=== PATIENT | female | born 1970 | race Caucasian/White ===

== ENCOUNTER → 2023-11-09 | Outpatient (CLI) | payer MEDICAID | LOC: ORTHO 10:19 | PROVIDERS: ATTEND Orthopaedic Surgery | DX: M17.0 Bilateral primary osteoarthritis of knee (principal); Z96.652 Presence of left artificial knee joint ==

== ENCOUNTER 2023-12-29 08:34 | Emergency (ER) | payer MEDICAID ==
[~2023-12-29] VITALS: Ht 152.4 cm; Wt 126.1 kg
[2023-12-29] MEDS ORDERED: Acetaminophen/Oxycodone 5 MG/325 MG TABLET PO ONE (10:40)
[2023-12-29] MEDS ORDERED: MELOXICAM15 MG PO (12:13)
== END 2023-12-29 12:18 | disposition home or self-care (01) ==
LOC: ED 08:34
DX: M25.561 Pain in right knee (principal); Z96.652 Presence of left artificial knee joint

== ENCOUNTER 2024-02-11 22:03 | Inpatient (IN) | payer OTHER, MEDICAID ==
[~2024-02-11] VITALS: Ht 149.9 cm; Wt 136.5 kg
[~2024-02-11 22:03] MED LIST: MELOXICAM15 MG PO
[2024-02-11 22:22] VITALS: BP 148/88
[2024-02-11 23:24] LABS: BUN 8 mg/dl (9-23); CHLORIDE 108 mmol/L (98-107); POTASSIUM 4.1 mmol/L (3.4-5.1)
[2024-02-11] MEDS ORDERED: FUROSEMIDE20 M1 PO (23:41)
[2024-02-11] MEDS ORDERED: CETIRIZINE HYDR10 MG PO (23:41)
[2024-02-11] MEDS ORDERED: JARDIANCE10 MG PO (23:41)
[2024-02-11] MEDS ORDERED: ATORVASTATIN CA20 M1 PO (23:42)
[2024-02-11] MEDS ORDERED: MELOXICAM15 MG PO (23:42)
[2024-02-11] MEDS ORDERED: PANTOPRAZOLE SO20 MG PO (23:42)
[2024-02-11] MEDS ORDERED: MONTELUKAST SOD10 MG PO (23:44)
[2024-02-11] MEDS ORDERED: DULERA 200 MCG-13 GM INH (23:44)
[2024-02-11 23:45] LABS: BASO % 0.4 % (0.0-1.0); EOS # 0.4 10*3/uL (0.0-0.4); EOS % 5.7 % (1.0-4.0); HEMATOCRIT 37.2 % (37.0-47.0); LYMPH # 2.9 10*3/uL (1.3-4.4); LYMPH % 40.2 % (27.0-41.0); MEAN CELL VOLUME 93.7 fl (81.0-99.0); MEAN CORPUSCULAR HGB CONC 30.9 g/dl (33.0-37.0); MEAN PLATELET VOLUME 9.9 fl (9.6-12.3); MONO # 0.5 10*3/uL (0.1-1.0); MONO % 7.6 % (3.0-9.0); NEUT # 3.3 10*3/uL (2.3-7.9); PLATELET COUNT AUTOMATED 276 10*3/uL (130-400); RED BLOOD COUNT 3.97 10*6/uL (4.10-5.10); RED CELL DISTRI WIDTH 14.2 % (0-14.5); WHITE BLOOD COUNT 7.1 10*3/uL (4.8-10.8)
[2024-02-11] MEDS ORDERED: ROPINIROLE HYDRO3 MG PO (23:45)
[2024-02-12] VITALS (8 sets, daily range): BP systolic 102–135; BP diastolic 57–78
[2024-02-12] MEDS ORDERED: Vancomycin Hydrochloride 250 ML IV ONE (00:45)
[2024-02-12] MEDS ORDERED: Piperacillin Sodium/Tazobact 50 ML IV ONE (00:45)
[2024-02-12] MEDS ORDERED: FUROSEMIDE 40 MG/4 ML VIAL IV ONE (00:45)
[2024-02-12] MEDS ORDERED: ALBUTEROL SULFATE HF INH (02:02)
[2024-02-12] MEDS ORDERED: Magnesium Hydroxide 30 ML UDC PO PRN (02:40)
[2024-02-12] MEDS ORDERED: Ondansetron Hydrochloride 4 MG/2 ML VIAL IV PRN (02:40)
[2024-02-12] MEDS ORDERED: ACETAMINOPHEN 325 MG TAB PO PRN (02:40)
[2024-02-12] MEDS ORDERED: Vancomycin Hydrochloride 1,000 MG in SODIUM CHLORIDE 0.9% 250 ML IV SCH (02:50)
[2024-02-12] MEDS ORDERED: Albuterol Sulfate 2.5 MG/3 ML VIAL NEB PRN (03:20)
[2024-02-12] MEDS ORDERED: Piperacillin Sodium/Tazobact 50 ML IV SCH (06:00)
[2024-02-12] MEDS ORDERED: FUROSEMIDE 40 MG/4 ML VIAL IV SCH (06:00)
[2024-02-12] MEDS ORDERED: Pantoprazole Sodium 20 MG TAB PO SCH (06:00)
[2024-02-12 06:52] LABS: BASO % 0.7 % (0.0-1.0); EOS # 0.4 10*3/uL (0.0-0.4); EOS % 6.5 % (1.0-4.0); HEMATOCRIT 40.7 % (37.0-47.0); LYMPH # 2.1 10*3/uL (1.3-4.4); LYMPH % 36.1 % (27.0-41.0); MEAN CELL VOLUME 93.8 fl (81.0-99.0); MEAN CORPUSCULAR HGB 28.6 pg (27.0-31.0); MEAN CORPUSCULAR HGB CONC 30.5 g/dl (33.0-37.0); MEAN PLATELET VOLUME 10.2 fl (9.6-12.3); MONO # 0.4 10*3/uL (0.1-1.0); MONO % 7.5 % (3.0-9.0); NEUT # 2.9 10*3/uL (2.3-7.9); NEUT % 48.9 % (47.0-73.0); PLATELET COUNT AUTOMATED 307 10*3/uL (130-400); RED BLOOD COUNT 4.34 10*6/uL (4.10-5.10); RED CELL DISTRI WIDTH 14.2 % (0-14.5); WHITE BLOOD COUNT 5.8 10*3/uL (4.8-10.8)
[2024-02-12 06:58] LABS: ALKALINE PHOSPHATASE 85 U/L (46-116); BUN 8 mg/dl (9-23); CHLORIDE 103 mmol/L (98-107); POTASSIUM 3.8 mmol/L (3.4-5.1); SGPT/ALT 14 U/L (5-49)
[2024-02-12] MEDS ORDERED: Enoxaparin Sodium 40 MG/0.4 ML SYR SC SCH (10:00)
[2024-02-12] MEDS ORDERED: BUDESONIDE 0.5 MG AMP NEB SCH (10:00)
[2024-02-12] MEDS ORDERED: Albuterol Sulfate 2.5 MG/3 ML VIAL NEB SCH (10:00)
[2024-02-12] MEDS ORDERED: ROPINIROLE HYDROCHLORIDE 3 MG PO SCH (10:00)
[2024-02-12] MEDS ORDERED: VANCOMYCIN/WATER FOR INJ (PEG) 250 ML IV SCH (10:00)
[2024-02-12] MEDS ORDERED: Cetirizine Hydrochloride 10 MG TAB PO SCH (10:00)
[2024-02-12] MEDS ORDERED: ATORVASTATIN CALCIUM 20 MG TAB PO SCH (18:00)
[2024-02-12] MEDS ORDERED: Montelukast Sodium 10 MG TAB PO SCH (22:00)
[2024-02-13 00:32] VITALS: BP 139/73
[2024-02-13 03:47] VITALS: BP 127/70
[2024-02-13 06:50] LABS: BASO % 0.5 % (0.0-1.0); EOS # 0.4 10*3/uL (0.0-0.4); EOS % 5.5 % (1.0-4.0); HEMATOCRIT 43.1 % (37.0-47.0); LYMPH # 2.3 10*3/uL (1.3-4.4); LYMPH % 35.8 % (27.0-41.0); MEAN CELL VOLUME 93.5 fl (81.0-99.0); MEAN CORPUSCULAR HGB 28.2 pg (27.0-31.0); MEAN CORPUSCULAR HGB CONC 30.2 g/dl (33.0-37.0); MONO # 0.3 10*3/uL (0.1-1.0); MONO % 5.2 % (3.0-9.0); NEUT # 3.4 10*3/uL (2.3-7.9); NEUT % 52.8 % (47.0-73.0); PLATELET COUNT AUTOMATED 333 10*3/uL (130-400); RED BLOOD COUNT 4.61 10*6/uL (4.10-5.10); RED CELL DISTRI WIDTH 14.3 % (0-14.5); WHITE BLOOD COUNT 6.4 10*3/uL (4.8-10.8)
[2024-02-13 07:10] LABS: BUN 9 mg/dl (9-23); CHLORIDE 101 mmol/L (98-107); POTASSIUM 4.1 mmol/L (3.4-5.1)
[2024-02-13 08:01] VITALS: BP 127/87
[2024-02-13 12:00] VITALS: BP 125/89
[2024-02-13 14:34] VITALS: BP 125/61
[2024-02-13 20:00] VITALS: BP 144/86
[2024-02-14] VITALS: BP 137/68
[2024-02-14 08:00] VITALS: BP 141/65
[2024-02-14] MEDS ORDERED: LASIX40 MG PO (10:46)
[2024-02-14] MEDS ORDERED: K-TAB20 MEQ PO (10:46)
[2024-02-14] MEDS ORDERED: VIBRAMYCIN100 MG PO (10:47)
== END 2024-02-14 11:12 | disposition home or self-care (01) | DRG 177 ==
LOC: ED 22:03 → 4E 02-12 00:56 → EDHOLD 02-12 00:56 → 4E 02-13 13:04
PROVIDERS: Physician Assistant Medical; Student in an Organized Health Care Education/Training Program; ADMIT Student in an Organized Health Care Education/Training Program; ATTEND Student in an Organized Health Care Education/Training Program
DX: U07.1 COVID-19 (principal); I50.33 Acute on chronic diastolic (congestive) heart failure; L03.115 Cellulitis of right lower limb; L03.116 Cellulitis of left lower limb; D64.9 Anemia, unspecified; I34.0 Nonrheumatic mitral (valve) insufficiency; K21.9 Gastro-esophageal reflux disease without esophagitis; K76.0 Fatty (change of) liver, not elsewhere classified; E87.8 Other disorders of electrolyte and fluid balance, not elsewhere classified; J44.9 Chronic obstructive pulmonary disease, unspecified; E11.65 Type 2 diabetes mellitus with hyperglycemia; Z82.49 Family history of ischemic heart disease and other diseases of the circulatory system; Z83.3 Family history of diabetes mellitus; Z79.51 Long term (current) use of inhaled steroids; Z79.899 Other long term (current) drug therapy